=== PATIENT | female | born 1995 | race Hispanic/Latino ===

== ENCOUNTER → 2022-12-24 | Outpatient (CLI) | payer MEDICARE | END | disposition home or self-care (01) | LOC: SHCH 08:10 | PROVIDERS: ATTEND Student in an Organized Health Care Education/Training Program | DX: R06.02 Shortness of breath (principal) | CPT/HCPCS: 93306 ==

== ENCOUNTER 2023-09-06 12:21 | Emergency (ER) | payer MEDICARE ==
[~2023-09-06] VITALS: Ht 149.9 cm; Wt 63.5 kg
[2023-09-06 12:58] VITALS: BP 132/69; PULSE 95; RESP 16
[2023-09-06] MEDS ORDERED: CYCL-309 PO (17:25)
[2023-09-06] MEDS ORDERED: IBUP-2071 PO (17:25)
[2023-09-06] MEDS ORDERED: LIDO1ADH71 TP (17:25)
[2023-09-06] MEDS ORDERED: KETOROLAC 15MG/ML VIAL (15MG/ML) IM ONE (17:30)
== END 2023-09-06 18:23 | disposition home or self-care (01) ==
LOC: EDH 12:21
DX: S46.911A Strain of unspecified muscle, fascia and tendon at shoulder and upper arm level, right arm, initial encounter (principal); W18.39XA Other fall on same level, initial encounter; Y93.89 Activity, other specified; Y92.89 Other specified places as the place of occurrence of the external cause; Y99.8 Other external cause status
CPT/HCPCS: 99283; 73030; 96372; J1885

== ENCOUNTER 2025-05-31 23:46 | Emergency (ER) | payer MEDICARE ==
[~2025-05-31] VITALS: Ht 144.8 cm; Wt 76.7 kg
[~2025-05-31 23:46] MED LIST: CEPH500T PO; CYCL-309 PO; IBUP-2071 PO; LIDO1ADH71 TP
--- NOTE | 2025-06-01 00:16 | ERN ---
ED Note History of Present Illness Stated Complaint: Patient comes into the ED. Because she said that she would change her her trach that has morning. She says she changes that has weekly the reason that she says she has that has that has because she has sleep apnea. The patient that has able to breathe without the trachea. During the day. She has been having this for a long while. She has neurofibromatosis. She has a mass in her throat to the side. She denies any hemoptysis any shortness of breath any cough congestion runny nose fevers chills chest pain that has mild pink stained. Within the tracheostomy tube. She is able to pull it out. She is able to speak in full complete sentences her vitals are stable Chief Complaint: Other Problems Time Seen by MD: 00:11 Allergies: Coded Allergies: latex (Unverified Allergy, Unknown, 04/04/24) Home Meds Active Scripts Cephalexin (Cephalexin) 500 Mg Tablet, 500 MG PO BID for 5 Days, #10 TAB Prov:MARIO DIGGS MD 04/05/24 Lidocaine (Lidocaine Pain Relief) 4 % Adh..patch, 1 EACH TP DAILY, #1 BOX Prov:GRETCHEN VERDIN 09/06/23 Cyclobenzaprine HCl (Cyclobenzaprine HCl) 10 Mg Tablet, 10 MG PO DAILYDINNER for 10 Days, #10 TAB Prov:GRETCHEN VERDIN 09/06/23 Ibuprofen (Ibuprofen) 800 Mg Tablet, 800 MG PO Q8H PRN for PAIN, #30 TAB 0 Refills Prov:GRETCHEN VERDIN 09/06/23 Past Medical History Past Medical History: Other Additional Past Medical Hx: NF1, SCOLOSIS, SLEEP APENA, TUMOR TO NECK AND SPINE Surgical History: Other Surgical History Other: LEFT BKA, TRACH Family History: Negative LMP: May 31, 2025 Review of System Dictation Constitutional: Negative for fever,chills, and weight loss Eyes: Negative for injury, pain,redness, and discharge ENT: Negative for injury,pain or swelling Cardiovascular: Negative for chest pain, palpitations, and edema Respiratory: Negative for shortness of breath, cough, and wheezing, Abdomen/GI: Negative for abdominal pain, nausea, vomiting, diarrhea, and constipation Back: Negative for injury and pain : Negative for injury, bleeding and discharge MS/Extremity: Negative for injury and deformity Skin: Negative for rash, and discoloration Neuro: Negative for headache, weakness, numbness, tingling, and seizure Psych: Negative for suicide ideation, homicidal ideation, and hallucinations Tracheostomy problem Initial Vital Sign VS Vital Signs Date Time Temp Pulse Resp B/P (MAP) Pulse Ox O2 Delivery O2 Flow Rate FiO2 05/31/25 23:47 97.9 85 20 130/86 96 Room Air 05/31/25 23:54 0 21 Physical Exam Dictation General: awake, alert, NAD Head/Face: Normocephalic, atraumatic Eyes: PERRL, EOMI, vision at baseline ENT: oral cavity clear, TMs clear, no signs of infection Neck: Trachea midline, supple, no nuchal rigidity Cardiovascular: RRR, normal S1/S2, No MRGs, no JVD Respiratory: CTAB, no respiratory distress, No rales or wheezes Abdomen: Soft, non-tender, non-distended, normal bowel sounds, no guarding or rebound. Skin: Warm, dry, normal turgor, no rash MS/Extremity: Pulses equal, no cyanosis, neurovascular intact, FROM Neuro: COAx4, GCS 15, strength 5/5, CN 2-12 intact, normal cerebellar exam, normal gait, Psych: Normal behavior, mood, and affect normal The patient is able to breathe spontaneously. Does not have that has not hooked up to event ventilator machine. She is able to pull out the tracheostomy tube. That has mi tracheostomy tube. She is also able to speak when she had plugs into it. But also do she is able to breathe without the tracheostomy again when the tube was pulled out. That has no purulence that has no pus there was no bleeding. That has that has pink material inside around of the tracheostomy tube. We had cleaned the two with the swabs saline and suction. ED Course ED Course Vital Signs Date Time Temp Pulse Resp B/P (MAP) Pulse Ox O2 Delivery O2 Flow Rate FiO2 05/31/25 23:54 97.9 91 18 134/78 97 Room Air* 0 21 05/31/25 23:47 97.9 85 20 130/86 96 Room Air Medical Decision Making MDM We had cleaned the tracheostomy tube for her. She changed that has weekly. Again she is able to breathe with and/or without a tracheostomy tube again she stated this is not for breathing during the day it is just for nighttime because this allows for the CPAP machine to work. Again the masses that is she said was just in the the back of the throat. Again the visual throat. I do not have visualize any masses. She also said she had one in her leg. But otherwise the denies having any masses in her lungs. I did consider pulmonary hemoptysis. Masses hemorrhaging. Again very unlikely given the physical exam. No acute distress nontoxic appearing vitals are stable again auscultation on the medial lateral superior and inferior on anterior posterior lung oliveros. No wheezing rhonchi crackles or consolidations again there was no hemoptysis either before during or now. I told the patient if she has any respiratory distress or any other issues to return immediately to the ED. I did offer the patient wants blood work or CAT scan at that has time. She said she felt fine with just with the cleaning of the tube. Also do we had RT come down and do deep suction patient did not have any other questions or request MDM: Differential diagnosis: Rationale: Tests considered and ordered secondary to shared decision making include: Previous outside records reviewed: Old ER visits. Risk of complication and/or morbidity or mortality of patient management: None Medications-Per medication reconciliation Need for hospitalization: Patient does not meet criteria for hospitalization. Need for emergency major/minor surgery: No There are no social concerns with this patient. Prescription drug management Prescriptions will include symptomatic care Patient's prior external medical records from other ER visits were reviewed by me as indicated. Prior testing and results from previous visits were reviewed. Prior tests were taken into account with medical decision making and resource utilization, independent historian/historians were used to obtain complete medical history. I independently interpreted the test that were performed, results were reviewed by me and considered findings on radiology if ordered. Medical management and examination interpretation discussions were had by me with other qualified healthcare professionals as indicated for the patient's care. DX & DISP Disposition: Discharge Departure Impression: Primary Impression: Tracheostomy care Condition: Stable Referrals: CASIMIRO HINTON MD (PCP) HENRIK MORALES MD Jun 01, 2025 00:16
[2025-06-01 00:56] VITALS: BP 133/69; PULSE 91; RESP 20; TEMP 98.2; O2SAT 98
--- NOTE | 2025-06-01 00:56 | NUR ---
TRACH CARE AND SUCTION PROVIDED BY RT LA NENA AT THIS TIME. NO SIGNS OF ACUTE RESP DISTRESS NOTED, VSS ON RA, RESP EVEN AND UNLABORED.
== END 2025-06-01 00:59 | disposition home or self-care (01) ==
LOC: EDH 23:46
DX: Z43.0 Encounter for attention to tracheostomy (principal); Z89.512 Acquired absence of left leg below knee; Z91.040 Latex allergy status
CPT/HCPCS: 99282

== ENCOUNTER 2025-06-05 18:01 | Emergency (ER) | payer MEDICARE ==
[~2025-06-05] VITALS: Ht 144.8 cm; Wt 72.6 kg
[2025-06-05 18:03] VITALS: BP 113/79; PULSE 89; RESP 18; TEMP 97.9
--- NOTE | 2025-06-05 18:22 | ERN ---
ED Note History of Present Illness Stated Complaint: DIZZINESS Chief Complaint: Dizzy/Light Headed Time Seen by MD: 18:04 Time Seen by Midlevel: 18:04 Dictation: The patient is a 30-year-old female with a history of NF1, tracheostomy placement who presents to the emergency department with a complaints of dizziness, nausea nonbloody vomiting, upper abdominal pain, decreased urine output onset this morning. Patient reports she feels like she is dehydrated. Denies any fevers, denies any diarrhea. Denies any head trauma Allergies: Coded Allergies: latex (Unverified Allergy, Unknown, 04/04/24) Home Meds Active Scripts Ondansetron (Ondansetron Odt) 4 Mg Tab.rapdis, 4 MG PO q8hprn PRN for nausea, #10 TAB 0 Refills Prov:VIANEY DALY [employer] 06/05/25 Cephalexin (Cephalexin) 500 Mg Tablet, 500 MG PO BID for 5 Days, #10 TAB Prov:MARIO DIGGS MD 04/05/24 Lidocaine (Lidocaine Pain Relief) 4 % Adh..patch, 1 EACH TP DAILY, #1 BOX Prov:GRETCHEN VERDIN [facility] 09/06/23 Cyclobenzaprine HCl (Cyclobenzaprine HCl) 10 Mg Tablet, 10 MG PO DAILYDINNER for 10 Days, #10 TAB Prov:GRETCHEN VERDIN [facility] 09/06/23 Ibuprofen (Ibuprofen) 800 Mg Tablet, 800 MG PO Q8H PRN for PAIN, #30 TAB 0 Refills Prov:GRETCHEN VERDIN 09/06/23 Past Medical History Past Medical History: Other Additional Past Medical Hx: NF1,TRACHEOSTOMY Surgical History: Other Surgical History Other: TRACHEOSTOMY, LT LEG AMPUTATION WITH PROSTETIC Family History: Negative LMP: Jun 03, 2025 RN Note Reviewed/Agreed w/PFSH: Yes Review of System Dictation Constitutional: Negative for fever,chills, and weight loss Eyes: Negative for injury, pain,redness, and discharge ENT: Negative for injury,pain or swelling Cardiovascular: Negative for chest pain, palpitations, and edema Respiratory: Negative for shortness of breath, cough, and wheezing, Abdomen/GI: Negative for , diarrhea, and constipation positive for abdominal pain, nausea, vomiting Back: Negative for injury and pain : Negative for injury, bleeding and discharge MS/Extremity: Negative for injury and deformity Skin: Negative for rash, and discoloration Neuro: Negative for headache, weakness, numbness, tingling, and seizure positive for dizziness Psych: Negative for suicide ideation, homicidal ideation, and hallucinations Initial Vital Sign VS Vital Signs Date Time Temp Pulse Resp B/P (MAP) Pulse Ox O2 Delivery O2 Flow Rate FiO2 06/05/25 18:03 97.9 89 18 113/79 97 Room Air 0 Physical Exam Dictation Vital Signs reviewed General Appearance: Alert, oriented x 3, no acute distress, well developed, no urished. Head and Face: non-traumatic. Eyes: PERRL, pink conjunctivas, eyelid no trauma, anterior chamber with arcus senilis. Ears: Pinnas intact and no signs of trauma or erythema ear canals clear and no discharge TM no erythema Nose: No discharge, no bleeding. Oropharynx: Mouth normal, tongue pink. pharynx clear,no erythema, tonsils no exudates, no abscesses noted, mucous me mbrane moist Neck: Supple, non-tender, no thyromegaly, no masses, no JVD, no bruits Breast:Deferred Chest:No tenderness, no crepitus, no paradoxical movement, no retractions Lungs:Clear, well-ventilated, symmetric, no rales, no wheezing, no rhonchi, no stridor, good breath sounds bilaterally Heart: Regular rate, regular rhythm, no murmur, no gallops Vascular: no peripheral edema, Abdomen: Soft, positive bowel sounds, nondistended, no guarding, nontender, no rebound, no masses no hepatomegaly, no splenomegaly, no Melendez's sign, no hernias. Rectal: Deferred Genital: Deferred Neurological: Normal speech, motor function intact, sensory function intact , upper extremities equal in strength, lower extremities equal in strength Musculoskeletal: Neck nontender, full range of motion, back nontender, full range of motion, Extremities: nontender, full range of motion Skin: Color pink, dry, no turgor, no rash, no lacerations, no abrasions, no contusions. Lymphatic: Deferred Results (Laboratory/Radiology) Laboratory/Radiology Laboratory Tests Test 06/05/25 18:46 06/05/25 21:10 White Blood Count 7.1 K/uL (4.8-10.8) Red Blood Count 4.41 MIL/uL (4.00-5.50) Hemoglobin 12.5 g/dL (12.0-16.0) Hematocrit 38.1 % (36-48) Mean Corpuscular Volume 86.4 fL (79-99) Mean Corpuscular Hemoglobin 28.3 pg (27.0-33.0) Mean Corpuscular Hemoglobin Concent 32.8 g/dL (32.0-36.0) Red Cell Distribution Width 13.2 % (11.0-15.5) Platelet Count 351 K/uL (130-400) Mean Platelet Volume 10.2 fL (7.5-10.5) Immature Granulocyte % (Auto) 0.4 % (0-1) Neutrophils (%) (Auto) 61.0 % (40.0-77.0) Lymphocytes (%) (Auto) 25.2 % (21.0-51.0) Monocytes (%) (Auto) 9.1 % (3.0-13.0) Eosinophils (%) (Auto) 3.5 % (0.0-8.0) Basophils (%) (Auto) 0.8 % (0.0-5.0) Neutrophils # (Auto) 4.3 K/uL (1.8-7.7) Lymphocytes # (Auto) 1.8 K/uL (1.0-4.8) Monocytes # (Auto) 0.6 K/uL (0.1-1.0) Eosinophils # (Auto) 0.25 K/uL (0.00-0.70) Basophils # (Auto) 0.06 K/uL (0.00-0.20) Absolute Immature Granulocyte (auto 0.03 K/uL (0-1) Nucleated Red Blood Cells 0.0 % (0.0-0.19) Sodium Level 141 mmol/L (136-145) Potassium Level 4.1 mmol/L (3.5-5.1) Chloride Level 106 mmol/L (101-111) Carbon Dioxide Level 25 mmol/L (21-32) Blood Urea Nitrogen 23 mg/dL (7-18) H Creatinine 0.7 mg/dL (0.5-1.0) Glomerular Filtration Rate Calc 120 mL/min (>90) Random Glucose 87 mg/dL (70-105) Total Calcium 8.5 mg/dL (8.5-10.1) Magnesium Level 2.10 mg/dL (1.80-2.40) Total Bilirubin 0.3 mg/dL (0.2-1.0) Direct Bilirubin 0.1 mg/dL (0.0-0.3) Aspartate Amino Transf (AST/SGOT) 34 U/L (10-37) Alanine Aminotransferase (ALT/SGPT) 57 U/L (12-78) Alkaline Phosphatase 83 U/L (50-136) Total Creatine Kinase 62 U/L (21-232) Troponin I High Sensitivity < 4 ng/L (4-50) L Total Protein 6.7 g/dL (6.0-8.3) Albumin 3.3 g/dL (3.5-5.0) L Lipase 69 U/L (16-77) Urine Color YELLOW (YELLOW) Urine Appearance CLOUDY (CLEAR) H Urine pH 6.0 (5.0-8.0) Urine Specific [place] 1.029 (1.001-1.031) Urine Protein 20 mg/dL (NEGATIVE) H Urine Glucose (UA) NEGATIVE mg/dL (NEGATIVE) Urine Ketones NEGATIVE mg/dL (NEGATIVE) Urine Occult Blood LARGE (NEGATIVE) H Urine Nitrate NEGATIVE (NEGATIVE) Urine Bilirubin NEGATIVE mg/dL (NEGATIVE) Urine Urobilinogen 6 mg/dL (0.2-1.0) H Urine Leukocyte Esterase 75 [place]/uL (NEGATIVE) H REASON: sob ORDERING PHYSICIAN: VIANEY DALY PROCEDURE: CXR1VW - CHEST 1VW EXAM: XR Chest, 1 View. CLINICAL HISTORY: 30 year old female with Shortness of breath. COMPARISON: None provided. FINDINGS: LUNGS: The lungs are clear. No consolidation. PLEURAL SPACES: No pleural effusion or pneumothorax. HEART: The heart size is normal. BONES: No acute osseous abnormality. LINES AND TUBES: The tracheostomy tube tip is above the laly. IMPRESSION: 1. No acute cardiopulmonary pathology. /[place] Labs Reviewed?: Yes EKG: (+) rhythm (Sinus rhythm) EKG Comment: Date:06/05/2025 Time:1952 Ventricular rate:79 ME interval:159 QRS duration:95 QT/QTc:374/428 EKG interpretation: Sinus rhythm Reviewed by ED Attending. No STEMI ED Course ED Course Orders Procedure Category Date Status Time Cbc With Differential LAB 06/05/25 Complete 18:15 Chest 1vw RAD 06/05/25 Resulted 18:15 12 Lead Ekg Tracing- EKG 06/05/25 Logged Technical 18:15 0.9%Nacl 1000ml (Ns PHA 06/05/25 Complete 1000ml) 18:30 Ondansetron 4mg Inj PHA 06/05/25 Complete (Zofran 4mg Inj) 18:30 Magnesium LAB 06/05/25 Complete 18:15 Creatine Kinase, Total LAB 06/05/25 Complete 18:15 Troponin I High LAB 06/05/25 Complete Sensitivity 18:15 Urinalysis Profile LAB 06/05/25 In Process 18:15 Basic Metabolic Panel LAB 06/05/25 Complete 18:15 Hepatic Function Panel LAB 06/05/25 Complete 18:15 Lipase LAB 06/05/25 Complete 18:15 ,Urine Test LAB 06/05/25 In Process 18:15 Culture Urine RICKEY 06/05/25 Logged 21:41 Current Medications Medications (Trade) Dose Ordered Sig/Nataliia Route PRN Reason Start Time Stop Time Status Last Admin Dose Admin Ondansetron HCl (zoFRAN 4MG INJ) 4 mg ONCE ONCE IVP 06/05/25 18:30 06/05/25 18:31 DC 06/05/25 20:14 Sodium Chloride 1,000 ml @ 0 mls/hr ONCE ONCE IV 06/05/25 18:30 06/05/25 18:31 DC 06/05/25 20:14 Vital Signs Date Time Temp Pulse Resp B/P (MAP) Pulse Ox O2 Delivery O2 Flow Rate FiO2 06/05/25 18:03 97.9 89 18 113/79 97 Room Air 0 Medical Decision Making MDM The patient is a 30-year-old female with a history of NF1, tracheostomy place ment who presents to the emergency department with a complaints of dizziness, nausea nonbloody vomiting, upper abdominal pain, decreased urine output onset this morning. Patient reports she feels like she is dehydrated. Denies any fevers, denies any diarrhea. Denies any head trauma CBC showed no leukocytosis, no anemia, chemistry showed no electrolyte imbalance, negative troponin, negative lipase, negative liver enzymes. urinalysis positive for leukocyte esterase. Patient received IV fluids and antiemetics. On physical exam patient is in no acute distress, has not had an episode of vomiting. Patient continues neurologically intact. Abdomen is soft and nontender. Stable vital signs. Tolerated p.o. intake. She will be discharged to follow up with the PCP. Differential diagnosis: Gastroenteritis, dehydration, pancreatitis, electrolyte imbalance Need for hospitalization: Patient does not meet criteria for hospitalization. There are no social concerns with this patient. DX & DISP Disposition: Discharge Departure Impression: Primary Impression: Viral gastroenteritis Additional Impressions: Nausea and vomiting, UTI (urinary tract infection) Condition: Stable Scripts Nitrofurantoin Monohyd/M-Cryst (Macrobid 100 mg Capsule) 100 Mg Capsule 1 CAP PO BID for 5 Days, #10 CAP 0 Refills Prov: VIANEY DALY 06/05/25 Ondansetron (Ondansetron Odt) 4 Mg Tab.rapdis 4 MG PO q8hprn PRN for nausea, #10 TAB 0 Refills Prov: VIANEY DALY 06/05/25 Additional Instructions: Your labs were unremarkable. your chest x-ray was normal please follow up with the primary doctor in 1-2 days. If anything worsens, you develop severe vomiting please return to ER FOLLOW-UP WITH PRIMARY CARE PROVIDER IN 1 TO 2 DAYS. TAKE MEDICATIONS DIRECTED HERE IN THE EMERGENCY ROOM. OKAY TO CONTINUE HOME MEDICATIONS UNLESS OTHERWISE DISCUSSED DURING YOUR VISIT IN THE EMERGENCY ROOM TODAY. RETURN TO YOUR NEAREST EMERGENCY ROOM IF SYMPTOMS WORSEN OR IF THERE IS NO IMPROVEMENT. CALL 911 IF YOU NEED IMMEDIATE ASSISTANCE. TAKE TYLENOL [id number] NEEDED AND IF NO CONTRAINDICATIONS ARE PRESENT. INCREASE ORAL HYDRATION. A WOUND CULTURE OR URINE CULTURE WAS ORDERED HERE IN THE EMERGENCY ROOM DEPARTMENT PLEASE FOLLOW-UP WITH PRIMARY CARE PROVIDER AND ADVISE THEM TO GET REPEAT PORTS FROM OUR FACILITY. IF YOU HAD ANY JAKUB WRAP/SPLINTS THAT WERE APPLIED HERE, PLEASE DO NOT REMOVE THEM UNTIL YOU SEE YOUR PRIMARY CARE OR SPECIALTY. Referrals: CASIMIRO HINTON MD (PCP) Time of Disposition: 20:43 I have reviewed the case, and I agree with, Diagnosis and Plan DALY,VIANEY DEGROOT Jun 05, 2025 18:22
[2025-06-05 18:56] LABS: IMMATURE GRANULOCYTE ABSOLUTE 0.03 K/uL (0-1); NUCLEATED RED BLOOD CELLS 0.0 % (0.0-0.19); PLATELET COUNT (AUTO) 351 K/uL (130-400); RED BLOOD CELL COUNT(AUTO) 4.41 MIL/uL (4.00-5.50); RED CELL DISTRIBUTION WIDTH 13.2 % (11.0-15.5); WHITE BLOOD COUNT (AUTO) 7.1 K/uL (4.8-10.8)
--- NOTE | 2025-06-05 19:03 | HMCIMG ---
EXAM: XR Chest, 1 View. CLINICAL HISTORY: 30 year old female with Shortness of breath. COMPARISON: None provided. FINDINGS: LUNGS: The lungs are clear. No consolidation. PLEURAL SPACES: No pleural effusion or pneumothorax. HEART: The heart size is normal. BONES: No acute osseous abnormality. LINES AND TUBES: The tracheostomy tube tip is above the laly. IMPRESSION: 1. No acute cardiopulmonary pathology. /[place]
[2025-06-05 19:05] LABS: CREATININE 0.7 mg/dL (0.5-1.0); GLOMERULAR FILTR. RATE CALC 120.0 mL/min (>90); GLUCOSE,RANDOM 87.0 mg/dL (70-105); SODIUM SERUM 141.0 mmol/L (136-145); UREA NITROGEN, BLOOD 23.0 mg/dL (7-18)
[2025-06-05 19:10] LABS: ASPARTATE AMINOTRANSFERASE 34.0 U/L (10-37); CREATINE KINASE, TOTAL 62.0 U/L (21-232); TOTAL PROTEIN, SERUM 6.7 g/dL (6.0-8.3)
[2025-06-05] MEDS: 0.9%NACL 1000ML 1,000 ML IV ONE (20:14)
[2025-06-05] MEDS ORDERED: ONDA-243 PO (20:43)
[2025-06-05 21:36] LABS: APPEARANCE,URINE CLOUDY (CLEAR); GLUCOSE, URINE (UA) NEGATIVE (NEGATIVE); LEUKOCYTE ESTERASE ,URINE 75 Leu/uL (NEGATIVE); NITRATE,URINE NEGATIVE (NEGATIVE); OCCULT BLOOD,URINE LARGE (NEGATIVE)
[2025-06-05 21:41] LABS: ADD UA MICROSCOPIC YES
[2025-06-05] MEDS ORDERED: NITR100C4 PO (21:50)
[2025-06-05 21:51] LABS: HCG,QUALITATIVE URINE NEGATIVE (NEGATIVE)
[2025-06-05 21:53] LABS: HYALINE CASTS, URINE 0-1 /LPF (0-1 /LPF); SQUAMOUS EPITHELIAL CELL,UR FEW /HPF (0-2); UNCLASSIFIED CRYSTAL 8 /HPF (None Seen)
--- NOTE | 2025-06-06 06:54 | EKG ---
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
== END 2025-06-05 21:59 | disposition home or self-care (01) ==
LOC: EDH 18:01
DX: A08.4 Viral intestinal infection, unspecified (principal); N39.0 Urinary tract infection, site not specified; Z91.040 Latex allergy status
CPT/HCPCS: 99285; 96374; 71045; 96361; 82550; 80076; 83735; 84484; 80048; 83690; 85025; 87086; 81001; 81025; 36415; 93005; J7030; J2405

== ENCOUNTER 2025-08-09 19:30 | Emergency (ER) | payer MEDICARE ==
[~2025-08-09] VITALS: Ht 146.1 cm; Wt 72.6 kg
[~2025-08-09 19:30] MED LIST changes: +NITR100C4 PO; +ONDA-243 PO
--- NOTE | 2025-08-09 19:49 | ERN ---
General Chief Complaint: Dyspnea/Respdistress Stated Complaint: TRACH DISLODGED Time Seen by MD: 19:32 History of Present Illness Initial Comments 30-year-old female history neurofibromatosis with active treatment or a left neck mass here for evaluation of left tracheostomy malfunction. Patient states her tracheostomy fell out. She was able to replace it however came back to the emergency to make sure that it was Jones in. No fever no cough no shortness a breath. No nausea vomiting diarrhea. No abdominal pain or chest pain Allergies: Coded Allergies: latex (Unverified Allergy, Unknown, 04/04/24) Home Meds Active Scripts Nitrofurantoin Monohyd/M-Cryst (Macrobid 100 mg Capsule) 100 Mg Capsule, 1 CAP PO BID for 5 Days, #10 CAP 0 Refills Prov:VIANEY DALY [employer]SEMBL[employer] 06/05/25 Ondansetron (Ondansetron Odt) 4 Mg Tab.rapdis, 4 MG PO q8hprn PRN for nausea, #10 TAB 0 Refills Prov:VIANEY DALY 06/05/25 Cephalexin (Cephalexin) 500 Mg Tablet, 500 MG PO BID for 5 Days, #10 TAB Prov:MARIO DIGGS MD 04/05/24 Lidocaine (Lidocaine Pain Relief) 4 % Adh..patch, 1 EACH TP DAILY, #1 BOX Prov:GRETCHEN VERDIN 09/06/23 Cyclobenzaprine HCl (Cyclobenzaprine HCl) 10 Mg Tablet, 10 MG PO DAILYDINNER for 10 Days, #10 TAB Prov:GRETCHEN VERDIN 09/06/23 Ibuprofen (Ibuprofen) 800 Mg Tablet, 800 MG PO Q8H PRN for PAIN, #30 TAB 0 Refills Prov:GRETCHEN VERDIN 09/06/23 Past Medical History Past Medical History: Other Medical History Other: NEUROFIBROMATOSIS TYPE 1 Past Surgical History: Other Surgical History Other: TRACH Family History Family History: Negative Review of Systems: was completed, & the rest were negative. Physical Exam Physical Exam Dictation GENERAL APPEARANCE NAD, activity normal for age, well developed/ well nourished, no cyanosis, pallor, or diaphoresis. EYES lids/conjunctiva normal. EARS/NOSE/THROAT Mucous membranes moist, nares normal, lips/teeth normal uvula midline without oral pharyngeal erythema, exudate or swelling TMs normal bila terally. No lymphangitis/lymphedema. HEAD/NECK normocephalic atraumatic, TRACHEOSTOMY PLACED INTACT. CLEAN DRY INTACT. SHILEY IN PLACE. RESPIRATORY respiratory effort normal, speaks in full sentences, no tripod position, no accessory muscle use. Lungs clear to auscultation without rhonchi, wheezes, rales CARDIAC Regular rate and rhythm, no edema. ABDOMINAL Soft, ND/NT. No evidence of fluid wave. No pulsatile masses on exam, rebound tenderness, Melendez sign or pain over Mcburney's point. MUSCLES/EXTREMITIES No abnormal range of motion, no swelling. SKIN Warm, pink and dry. No rashes, dermatoses, petechiae or lesions. NEUROLOGICAL Speech is clear and appropriate. Normal level of consciousness. Gait and coordination are normal. 5/5 strength in all extremities. PSYCH Normal mood and affect. Judgement/competence is appropriate Results Laboratory and Microbiology Lab and Micro Result Laboratory Tests Test 08/09/25 20:12 Influenza Type A Antigen Negative For Type A Influenza Type B Antigen Negative For Type B SARS-CoV-2 Antigen (Rapid) PRESUMPTIVE NEGATIVE Group A Streptococcus Rapid negative (NEGATIVE) MDM 30-YEAR-OLD feMALE HERE FOR EVALUATION OF TRACHEOSTOMY MALFUNCTION. WE WILL GET RESPIRATORY TO READJUST SHILEY AND DISCHARGE HOME. ED Course Orders Procedure Category Date Status Time Chest 1vw RAD 08/09/25 Resulted 19:36 Influenza Type A & B, LAB 08/09/25 Complete Rapid 19:36 Covid19 (Sars Antigen LAB 08/09/25 Complete Rapid) 19:36 Rapid (Group A Strep) LAB 08/09/25 Complete 20:11 Neck Soft Tissue RAD 08/09/25 Resulted 20:24 DX & DISP Disposition: Discharge Departure Impression: Primary Impression: Tracheostomy care Additional Impression: Tracheostomy malfunction Condition: Stable Referrals: CASIMIRO HINTON MD (PCP) GYPSY SEALS MD Aug 09, 2025 19:49
--- NOTE | 2025-08-09 20:22 | NUR ---
Pt came in through ER due to no trach tie in place causing trach to decanulate. Pt placed trach back in herself at home, but wants her new back up trach placed in. Notified Dr. Rocha Pt has a cuffless Shiley 7.5 trach brought in by her. Dr. Rocha at bedside while new trach is placed in. Trach in place via confirmation auscultation and pt being able to talk. Dr. Rocha ordered Xray. Inner cannula in and PMV in place. Pt sating 96% on RA. Trach ties in place.
--- NOTE | 2025-08-09 20:47 | HMCIMG ---
EXAM: CR Chest, 1 View. CLINICAL HISTORY: sob COMPARISON: None provided. FINDINGS: LUNGS: No active infiltrate PLEURAL SPACES: No pleural effusion or pneumothorax. MEDIASTINUM: The cardiomediastinal silhouette is within normal limits. BONES: No aggressive appearing osseous lesion seen. MISCELLANEOUS: Tracheostomy midline above laly IMPRESSION: 1. Tracheostomy midline above laly 2. No active infiltrate /[place]
[2025-08-09 20:56] LABS: COVID19 (SARS ANTIGEN RAPID) PRESUMPTIVE NEGATIVE (NEGATIVE)
[2025-08-09 21:00] LABS: INFLUENZA TYPE A Negative For Type A (NEGATIVE); INFLUENZA TYPE B Negative For Type B (NEGATIVE)
--- NOTE | 2025-08-09 21:11 | HMCIMG ---
EXAM: CR Soft Tissue Neck, 2 views CLINICAL HISTORY: Tube placement. COMPARISON: None provided. FINDINGS: Satisfactory position of the tracheostomy tube. Diffuse soft tissue swelling in the superior portion of the retropharynx with a significantly compromised oropharyngeal airway. No radiopaque foreign body. The epiglottis is identified and is unremarkable. No acute osseous abnormality. Levoscoliosis of the cervical thoracic spine. IMPRESSION: Satisfactory position of the tracheostomy tube. Diffuse soft tissue swelling in the superior portion of the retropharynx with a significantly compromised oropharyngeal airway. /Panther
[2025-08-09 21:26] VITALS: BP 124/92; PULSE 82; RESP 18; TEMP 98.4; O2SAT 99
== END 2025-08-09 21:32 | disposition home or self-care (01) ==
LOC: EDH 19:30
DX: J95.03 Malfunction of tracheostomy stoma (principal); Z20.822 Contact with and (suspected) exposure to COVID-19; Z91.040 Latex allergy status
CPT/HCPCS: 31502; 70360; 71045; 87426; 87804; 87880; 99284